=== PATIENT | female | born 1975 | race Caucasian/White ===

== ENCOUNTER 2019-08-24 17:01 | Emergency (ER) | payer OTHER, SELFPAY ==
[2019-08-24 17:21] VITALS: BP 147/92; PULSE 74; RESP 20; TEMP 36.8; O2SAT 99; BMI 37.5
--- NOTE | 2019-08-24 18:45 | XR_ITS ---
WS: [id number] XR hand LT min 3V* [id number] REASON FOR EXAM: fall FINDINGS: This study in the distal third and fourth phalanges show corner fractures. There is soft ti ssue distortion over the fourth distal phalanx. The remaining phalanges metacarpals and carpals were normal. XR/XR hand LT min 3V* [id number] IMPRESSION: Soft tissue distortion is noted in the fourth distal phalanx Corner fractures of the distal third and fourth phalanges.
[2019-08-24] MEDS: tetanus-dipt-pertussis 0.5 mL SDV IM (21:23)
[2019-08-24 21:25] VITALS: PULSE 87
[2019-08-24] MEDS: amoxicillin-clav 875-125 mg Tablet 1 TAB PO (21:25)
[2019-08-24 21:28] VITALS: PULSE 87; RESP 18; O2SAT 98
--- NOTE | 2019-08-25 03:13 | W.ED.EXTPRO ---
HPI - Extremity Problem General: Chief complaint: Extremity Injury, Upper Stated complaint: hand pain Time Seen by Provider: 08/24/19 20:16 History of Present Illness: HPI Narrative: Patient got bucked off the horse and held onto the bridle and her her fingers has laceration left hand ring finger and pain to the end of the middle finger Complaint: extremity pain Onset (ago): hour(s) Pain Consistency: constant Location: left Severity scale (1-10): 6 Quality: aching Radiation: none Relieving factors: nothing Exacerbating factors: range of motion Associated symptoms: Deny chest pain, fever(s) or rash Review of Systems Const: Denies: fever, chills or body aches Eyes: Denies: change in vision or blurry vision ENMT: Denies: throat pain or nasal congestion Card: Denies: chest pain or shortness of breath on exertion Resp: Denies: shortness of breath, productive cough or non-productive cough GI: Denies: abdominal pain, nausea or vomiting Musc: Denies: extremity pain Skin/Breast: Reports: other (Laceration to the ring finger and tenderness to the end of both fingers middle and ring); Denies: rash Neuro: Denies: headache Psych: Denies: anxiety or depression Luciano/Lymph: Denies: easy bruising PFSH ED PFSH: Social History Smoking and tobacco status: never smoked Female Reproductive History: Date of last menstrual period: 08/24/19 Physical Exam Const: COMMON NORMALS: no apparent distress, average body habitus and oriented x3 HENMT: COMMON NORMALS: normocephalic HEAD & SCALP: normal to inspection and normocephalic FACE & SINUS: normal facial exam Eye: COMMON NORMALS: conjunctivae normal GENERAL EYE: normal appearance of both eyes CONJUNCTIVA: Yes conjunctivae normal Neck/C-Spine: COMMON NORMALS: no JVD Chest: COMMONS NORMALS: inspection of chest normal Resp: COMMON NORMALS: normal respiratory effort and clear to auscultation bilaterally AUSCULTATION: clear to auscultation bilaterally Cardio: COMMON NORMALS: no JVD, regular rate and regular rhythm RATE: regular rate RHYTHM: regular rhythm GI: COMMON NORMALS: normal to inspection, nondistended, normoactive bowel sounds Extremity: COMMON NORMALS: normal to inspection and full ROM RIGHT UPPER EXTREMITY: Yes hand & digits (Left middle finger with a laceration underneath the nail and up to the medial aspect and then left middle finger with tenderness and bruising to the distal aspect) Neuro: COMMON NORMALS: oriented x3 Procedures Laceration Laceration 1: Site: hand Side (If applicable): left Size (cm): 2 Description: linear Depth: simple, single layer Local Anesthetic: lidocaine 1% Amount of anesthesia used (mL): 3 Pre-repair: wound explored and irrigated extensively Skin layer closed with: nylon Size (cm): 4-0 Number of sutures: 6 Technique: simple, interrupted Course Vital Signs: Vital signs: Vital Signs Temperature 98.3 F 08/24/19 17:21 Pulse Rate 87 08/24/19 21:28 Respiratory Rate 18 08/24/19 21:28 Blood Pressure 147/92 08/24/19 17:21 Pulse Oximetry 98 08/24/19 21:28 Discharge Plan Discharge Patient Disposition: Home, Self-Care Clinical Impression: Laceration of finger of left hand Qualifiers: Encounter type: initial encounter Finger: ring finger Damage to nail status: without damage Foreign body presence: without foreign body Qualified Code(s): S61.215A - Laceration without foreign body of left ring finger without damage to nail, initial encounter Avulsion fracture of distal phalanx of finger Qualifiers: Encounter type: initial encounter Fracture type: closed Qualified Code(s): S62.639A - Displaced fracture of distal phalanx of unspecified finger, initial encounter for closed fracture Condition: Stable Prescriptions: New Augmentin 875-125 mg tablet 1 tab PO BID Qty: 14 RF: 0 Discharge Orders: Discharge Order (Routine); Ordered 08/24/19 Ordered By: Jamie Mcmullen Referrals: Eliecer Faustin [Primary Care Provider] - Discharge Diet: Usual diet Discharge Activity: Increase activity as tolerated Patient Instructions: Laceration (ED), Finger Fracture (ED) Activity Restrictions/Additional Instructions: Follow-up with medical provider as directed. Take medications as prescribed. Return to the ER or your medical provider if condition worsens. Please read and understand discharge instructions. If any questions ask please. Sutures out in 7 days. Wear splint 3 to 4 weeks. If signs symptoms of infection develop follow-up with your family provider Discharge Date/Time: 08/24/19 21:32 Coding Level of Care Code ED [employer] for [employer] Fwd Exam Comprehensive
== END 2019-08-24 21:32 | disposition home or self-care (01) ==
PROVIDERS: Emergency Provider Nurse Practitioner Family; PCP Family Medicine
DX: S61.215A Laceration without foreign body of left ring finger without damage to nail, initial encounter (principal); S62.663A Nondisplaced fracture of distal phalanx of left middle finger, initial encounter for closed fracture; S62.665A Nondisplaced fracture of distal phalanx of left ring finger, initial encounter for closed fracture; W23.0XXA Caught, crushed, jammed, or pinched between moving objects, initial encounter; Z23 Encounter for immunization
CPT/HCPCS: 12001; 12345; 73130; 90471; 90715; 99281; 99283; A6446